=== PATIENT | male | born 1975 | race Caucasian/White ===

== ENCOUNTER 2024-11-28 06:21 | Day surgery (SDC) | payer BC, SELFPAY | END 2024-11-28 11:04 | disposition home or self-care (01) | LOC: GI 06:21 | PROVIDERS: ATTENDING PHYSICIAN Internal Medicine Gastroenterology | DX: Z12.11 Encounter for screening for malignant neoplasm of colon (principal); K64.8 Other hemorrhoids; D12.4 Benign neoplasm of descending colon; D12.5 Benign neoplasm of sigmoid colon | CPT/HCPCS: 45385; 88305 ==

== ENCOUNTER 2025-04-01 20:09 | Emergency (ER) | payer BC, SELFPAY ==
[2025-04-01 20:13] VITALS: BP 131/87
[2025-04-01 20:33] LABS: Hematocrit 41.0 % (39.0-52.0); Hemoglobin 14.3 g/dL (13.0-18.0); Mean Corp Hgb Conc. 34.9 g/dL (33.0-37.0); Mean Corpuscular Volume 83.3 fL (80.0-94.0); Nucleated Red Blood Cells % 0 % (-); Platelet Count 246 10^3/uL (130-400); Red Cell Dist. Width 12.4 % (11.5-14.5)
[2025-04-01 20:54] LABS: ALT (SGPT) 21 U/L (0-50); AST (SGOT) 19 U/L (17-59); Albumin 4.6 g/dl (3.5-5.0); Alkaline Phosphatase 56 U/L (38-126); Blood Urea Nitrogen 14 mg/dl (9-20); Calcium 8.8 mg/dl (8.4-10.2); Carbon Dioxide 24 mmol/L (22-30); Chloride 108 mmol/L (98-107); Glucose 99 mg/dl (70-99); Potassium 4.0 mmol/L (3.5-5.1); Sodium 139 mmol/L (135-145); Total Protein 7.8 g/dl (6.3-8.2); eGFR > 60.00
[2025-04-01 21:07] LABS: Troponin I < 0.012 ng/ml
[2025-04-01 23:28] VITALS: BP 123/77
[2025-04-02] VITALS: BP 115/74
[2025-04-02 01:00] VITALS: BP 121/74
--- NOTE | 2025-04-02 01:12 | ED.GENMED ---
History of Present Illness
General
Chief Complaint: Jaw Pain
Source: patient
Exam Limitations: none
Time Seen by Provider: 04/02/25 00:36
Nursing documentation reviewed up to this point in time: agreed with
History of Present Illness
History of Present Illness:
49-year-old male presenting to the emergency department today with concerns of left-sided jaw pain since this morning mainly into the jaw but was concerned concerning he was aware that his [id number] had a heart attack and felt jaw pain. Denies
any significant shortness of breath or chest pain at this point. Denies any fevers or recent illness. Denies any specific injury to the area.
Past History
Past History
ED Past Medical History: None
ED Past Surgical History: None
Social History
Tobacco: Non-smoker
Alcohol: None
Drug: None
Personal:
Living: with family
Employment: Employed (brush painter)
Family History
Family History: CAD (father w/ CAD in 50s)
Review of Systems
Review of Systems
Allergies reviewed?: Yes
All Other Systems: ROS reviewed and negative except as documented in HPI and ROS
Phy Exam
Physical Exam
Physical Exam:
GENERAL: Alert , in no apparent distress
EYE: pupils equal and reactive
NECK: Supple, no significant adenopathy.
ENT: Reproducible discomfort when palpating the left side of the jaw without overlying skin changes no redness or warmth no lymphadenopathy. o/p clr, mmm.
CARDIAC: Regular rate and rhythm .
LUNGS: Clear breath sounds bilaterally, no acute respiratory distress, no wheezes/rales/rhonchi
ABDOMEN: Soft, without focal tenderness, no r/g, no cvat
NEUROLOGICAL: Alert and oriented, no focal neuro deficits
SKIN: Warm and dry, skin intact.
MUSCULOSKELETAL: No edema, well perfused.
PSYCH: Normal and appropriate interaction.
Course
Orders/Labs/Results
Orders:
Orders
04/01/25 20:09
Electrocardiogram (*1) Urgent
Reason for Study: Other
Other Reason for Exam: JAW PAIN, FAMILY HX OF ND WITH JUST JAW PAIN
04/01/25 20:10
EKG- Treatment ONCE
04/01/25 20:27
CMP [Comprehensive Metabolic Panel] Urgent
Complete Blood Count/With Diff Urgent
Troponin I Urgent
04/02/25 01:12
Acetaminophen [Tylenol] 1,000 mg PO NOW STA
Ibuprofen [Motrin] 600 mg PO NOW STA
Abnormal Lab Results
04/01/25
20:27
Absolute Lymphs (auto) 3.6 H 10^3/uL
(1.2-3.4)
Chloride 108 H mmol/L
(98-107)
04/01/25 20:27
04/01/25 20:27
Vital Signs
Initial and Last Documented VS:
Initial Vital Signs
Temp Pulse Resp BP Pulse Ox
98.6 F 74 16 131/87 100
04/01/25 20:13 04/01/25 20:13 04/01/25 20:13 04/01/25 20:13 04/01/25 20:13
Last Documented Vital Signs
Temp Pulse Resp BP Pulse Ox
97.6 F 69 18 115/74 98
04/01/25 23:28 04/02/25 00:30 04/02/25 00:30 04/02/25 00:00 04/02/25 00:15
MDM/Problems Addressed
MDM/Problems Addressed:
49-year-old male presenting to the emergency department today with concerns of left-sided jaw discomfort since this morning. On arrival vital signs are normal EKG normal troponin negative. Troponin was drawn at least 3 hours after onset of
symptoms. Very low likelihood of cardiac issue considering the jaw pain is very reproducible with movement and palpation. No overlying skin changes no signs of infection. Patient with potential TMJ D plan for close outpatient follow-up and
NSAIDs. Return precautions given.
*Pulse Oximetry
SaO2: 98
Oxygen Mode of Delivery: Room air
Patient hypoxic: no (98)
*Critical Care Note
Total Time (30-74mins, 75-104mins- exclusive of procedures): Not Applicable
ED Attending Note
-
Portions of this chart may have been created with voice recognition software.� Occasional wrong word or��sound alike� substitutions may have occurred due to the inherent limitations of voice recognition software.
Discharge Plan
Departure
Patient Disposition: Home (Routine Discharge)
Date of Disposition: 04/02/25
Time of Disposition: 01:15
Patient with high blood pressure during this ER visit?: No
Condition: Good
Covid-19: Not Applicable
Discharge Problem:
Jaw pain
Instructions: Temporomandibular Joint (TMJ) Disorders (DC)
Prescriptions:
No Action
colchicine 0.6 MG tablet
0.6 mg PO DAILY Qty: 7 0RF
Referrals:
Remington Malagon DO [Family Provider, Internal Medicine]
Activity Restrictions/Additional Instructions:
You came to the emergency department today with concerns of jaw pain. Here you have a reassuring assessment. Please take NSAIDs over the next few days and follow-up closely with the primary care doctor in the next week or so for any ongoing
symptoms. Return for any worsening, new or concerning symptoms.
Interventions
Interventions:
*Risk Screen - Suicide Last Done: 04/01/25 23:23
*General Assessment Last Done: 04/01/25 23:22
*Neglect/Abuse Screening Last Done: 04/01/25 23:24
*ED- Fall Risk Assessment Last Done: 04/01/25 23:22
*ED COVID-19 Vaccine History Last Done: 04/01/25 23:22
ED-EENT Assessment Last Done: 04/01/25 23:31
ED- Cardiac Assessment Last Done: 04/01/25 23:30
Discharge Date and Time
Print Language: GEORGIAN
[2025-04-02] MEDS: MOTRIN 600 MG PO (01:26)
[2025-04-02] MEDS: TYLENOL 1000 MG PO (01:26)
== END 2025-04-02 01:31 | disposition home or self-care (01) ==
LOC: EMR 20:09
PROVIDERS: Emergency Medicine; EMERGENCY PHYSICIAN Emergency Medicine; FAMILY PHYSICIAN Internal Medicine
DX: R68.84 Jaw pain (principal); Z82.49 Family history of ischemic heart disease and other diseases of the circulatory system
CPT/HCPCS: 99283; 80053; 84484; 85025; 93005